=== PATIENT | male | born 1935 | race Caucasian/White ===

== ENCOUNTER 2018-08-29 09:40 | Inpatient (IN) | payer MEDICARE, BC ==
[~2018-08-29] VITALS: Ht 175.3 cm; Wt 70.8 kg
[2018-08-29 09:48] VITALS: BP 143/57
[2018-08-29 10:04] LABS: ABSOLUTE EOSINOPHILS 0.1 thou/uL (0.0-0.7); ABSOLUTE MONOCYTES 0.5 thou/uL (0.0-1.2); BASOPHILS 0.5 %; HEMATOCRIT 32.8 % (42.0-52.0); LYMPHOCYTES 22.7 %; MCHC 33.7 g/dL (28.0-37.0); MONOCYTES 6.2 %; MPV 8.7 fl. (7.2-11.1); NUCLEATED RBCS 0 /100WBC; PLATELET COUNT* 201 thou/uL (150-400); POLYS 69.6 %; RBC 3.56 mil/uL (4.50-6.00); RDW-CV 14.3 % (10.5-14.5); WBC 8.6 thou/uL (4.0-11.0)
[2018-08-29 10:14] LABS: ANION GAP 9 mmol/L (7-16); BUN 33 mg/dL (7-18); CALCIUM 9.2 mg/dL (8.5-10.1); CHLORIDE 103 mmol/L (98-107); CO2 27 mmol/L (21-32); CREATININE 2.1 mg/dL (0.6-1.3); GLUCOSE 127 mg/dL (70-99); POTASSIUM 4.5 mmol/L (3.5-5.1); SODIUM 139 mmol/L (136-145)
[2018-08-29 10:17] LABS: APTT 28.7 Seconds (25.0-31.3); INR 1.1; PROTIME 10.9 Seconds (9.20-11.50)
[2018-08-29 10:33] LABS: ALBUMIN 3.8 g/dL (3.4-5.0); ALKALINE PHOSPHATASE 71 U/L (46-116); CK-MB MASS 1.6 ng/mL (<0.5-3.6); LIPASE 60 U/L (73-393); MAGNESIUM 1.6 mg/dL (1.8-2.4); NT-PRO BRAIN NAT PEPTIDE 1613 pg/mL (<300); SGOT 10 U/L (15-37); SGPT 16 U/L (30-65); TOTAL BILIRUBIN 0.3 mg/dL (<0.1-1.0); TOTAL PROTEIN 7.2 g/dL (6.4-8.2); TROPONIN-I LEVEL <0.06 ng/mL (<0.06)
[2018-08-29] MEDS ORDERED: PLAVIX 75 MG TA75 M1 PO (12:27)
[2018-08-29] MEDS ORDERED: FLOMAX0.4 MG PO (12:27)
[2018-08-29] MEDS ORDERED: SINGULAIR 10 MG10 M1 PO (12:28)
[2018-08-29] MEDS ORDERED: LIPITOR 20 MG T20 M1 PO (12:29)
[2018-08-29] MEDS ORDERED: OMEPRAZOLE40 MG PO (12:29)
[2018-08-29] MEDS ORDERED: CHERATUSSIN AC118 ML PO (12:30)
[2018-08-29] MEDS ORDERED: PROTONIX40 M1 PO (12:30)
[2018-08-29] MEDS ORDERED: IMDUR 30 MG TAB30 M1 PO (12:31)
[2018-08-29] MEDS ORDERED: PRINIVIL20 MG PO (12:31)
[2018-08-29] MEDS ORDERED: METFORMIN HCL500 MG PO (12:32)
[2018-08-29] MEDS ORDERED: COMBIVENT RESPIM4 GM INH (12:32)
[2018-08-29] MEDS ORDERED: ZANTAC 150MG T150 MG PO (12:33)
[2018-08-29] MEDS ORDERED: FLOVENT HFA 4444 MCG INH (12:34)
[2018-08-29] MEDS ORDERED: DRYSOL35 ML TOP (12:40)
[2018-08-29] MEDS ORDERED: ALLEGRA ALLERG180 MG PO (12:41)
[2018-08-29] MEDS ORDERED: PRILOSEC 20 MG20 MG PO (12:41)
[2018-08-29] MEDS ORDERED: CENTRUM SILVER1 EAC4 PO (12:41)
[2018-08-29] MEDS ORDERED: PROAIR HFA8.5 GM INH (12:41)
[2018-08-29 13:19] VITALS: BP 117/57
[2018-08-29 13:30] VITALS: BP 124/55
[2018-08-29 16:00] VITALS: BP 122/61
--- NOTE | 2018-08-29 16:20 | 2DMMODE ---
[place] [address] 2 D/M-MODE ECHOCARDIOGRAM Name: KENTRELL JIMENEZ Room: [address] ADM IN [facility]#: [id number] Admission: 08/29/18 Attend Phys: Belinda Bautista Discharge: Date of : 37 Date of Service: 08/29/18 1619 Report #: [id number] THIS REPORT FOR: //name// APPROVED REPORT Study performed: 08/29/2018 15:06:04 EXAM: Comprehensive 2D, Doppler, and color-flow Echocardiogram Patient Location: In-Patient Room #: [facility] Status: routine BSA: 1.87 HR: 79 bpm BP: 124/55 mmHg Rhythm: NSR Other Information Study Quality: Good Indications Atrial Fibrillation 2D Dimensions IVSd: 8.82 (7-11mm) LVOT Diam: 22.72 (18-24mm) LVDd: 58.77 mm PWd: 9.91 (7-11mm) Ascending Ao: 33.84 (22-36mm) LVDs: 44.10 (25-40mm) Aortic Root: 38.34 mm Volumes Left Atrial Volume (Systole) LA ESV Index: 46.10 mL/m2 Aortic Valve AoV Peak Dariel.: 2.07 m/s AO Peak Gr.: 17.22 mmHg LVOT Max P.61 mmHg AO Mean Gr.: 10.78 mmHg LVOT Mean P.80 mmHg LVOT Max V: 0.95 m/s AO V2 VTI: 48.72 cm LVOT Mean V: 0.62 m/s RODRICK (VTI): 1.75 cm2 LVOT V1 VTI: 21.03 cm Mitral Valve E/A Ratio: 0.78 MV Decel. Time: 178.19 ms MV E Max Dariel.: 0.85 m/[place] [address] 2 D/M-MODE ECHOCARDIOGRAM Name: KENTRELL JIMENEZ Room: [address] ADM IN .R.#: [id number] Admission: 08/29/18 Attend Phys: Belinda Bautista Discharge: Date of : 37 Date of Service: 08/29/18 1619 Report #: [id number] MV PHT: 51.67 ms MVA (PHT): 4.26 cm2 TDI E/Lateral E': 9.44 E/Medial E': 8.50 Medial E' Dariel.: 0.10 m/s Lateral E' Dariel.: 0.09 m/s Pulmonary Valve PV Peak Dariel.: 0.86 m/s PV Peak Gr.: 2.95 mmHg Left Ventricle The left ventricle is normal size. There is hypokinesis of the basal portion the inferior wall. There is normal left ventricular wall thickness. Left ventricular systolic function is preserved. LVEF is 50-55%. Grade I - abnormal relaxation pattern. Right Ventricle The right ventricle is normal size. The right ventricular systolic function is normal. Atria Left atrium is moderately dilated. The right atrium size is normal. Aortic Valve Moderate aortic valve sclerosis. No aortic regurgitation is present. Mild aortic stenosis. Mitral Valve The mitral valve is normal in structure. There is no mitral valve regurgitation noted. No evidence of mitral valve stenosis. Tricuspid Valve The tricuspid valve is normal in structure. Unable to assess PA pressure. Trace tricuspid regurgitation. Pulmonic Valve The pulmonary valve is normal in structure. There is no pulmonic valvular regurgitation. Great Vessels The aortic root is normal in size. IVC is normal in size and collapses >50% with [place] [address] 2 D/M-MODE ECHOCARDIOGRAM Name: KENTRELL JIMENEZ Room: [address] IN [facility]#: [id number] Admission: 08/29/18 Attend Phys: Belinda Bautista Discharge: Date of : 37 Date of Service: 08/29/18 1619 Report #: [id number] There is no pericardial effusion. <Conclusion> The left ventricle is normal size. There is normal left ventricular wall thickness. Left ventricular systolic function is preserved. LVEF is 50-55%. Grade I - abnormal relaxation pattern. There is hypokinesis of the basal portion the inferior wall. Left atrium is moderately dilated. Moderate aortic valve sclerosis. Mild aortic stenosis. Trace tricuspid regurgitation. IVC is normal in size and collapses >50% with inspiration. <ELECTRONICALLY SIGNED> By: Bobby Blunt MD, FACC 08/29/18 1619 18 18 Bobby Blunt MD, FACC /INF
--- NOTE | 2018-08-29 16:25 | EKG ---
[place] [address] ELECTROCARDIOGRAM REPORT Name: KENTRELL JIMENEZ Room: [address] ADM IN M.R.#: [id number] Admission: 08/29/18 Attend Phys: Forrest Toussaint Discharge: Date of : 37 Report #: [id number] THIS REPORT FOR: //name// [facility] ED Test Date: 2018-08-29 Test Time: 09:47:47 Pat Name: KENTRELL JIMENEZ Department: Room: [facility] Gender: M Injury Prevention Coordinator: Nay LANDRY : 1935 Requested By: Mohit Jean Order Number: [id number] MD: Bobby Blunt Measurements Intervals [place] Rate: 91 P: 63 NE: 161 QRS: 9 QRSD: 91 T: 46 QT: 316 QTc: 389 Interpretive Statements Sinus rhythm Ventricular premature complex Left atrial enlargement Baseline wander in lead(s) II,III,aVF No previous ECG available for comparison Electronically Signed On 08-29-2018 16:24:51 FISH[employer] TRAWL NET by Bobby Blunt [email or web address] <ELECTRONICALLY SIGNED> By: Bobby Blunt MD, FACC 08/29/18 1624 0947 0947 Bobby Blunt MD, [facility] /EPI
--- NOTE | 2018-08-29 16:51 | EKG ---
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 08/29/18 1651 1551 155 Bobby Blunt MD, FACC /EPI
[2018-08-29 20:00] VITALS: BP 100/51
[2018-08-30] VITALS: BP 113/53
[2018-08-30 04:00] VITALS: BP 113/41
[2018-08-30 04:27] LABS: CHOLESTEROL 88 mg/dL (<200); HDL CHOLESTEROL 43 mg/dL (>40); LDL CHOLESTEROL 35 mg/dL (<100); SERUM ASSESSMENT Clear; TRIGLYCERIDE 54 mg/dL (<150); VLDL 11 mg/dL (<40)
[2018-08-30 08:00] VITALS: BP 115/38
[2018-08-30 12:00] VITALS: BP 93/49
[2018-08-30 16:00] VITALS: BP 126/64
--- NOTE | 2018-08-30 16:16 | EKG ---
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: : 1935 Requested By: Mohit Jean Order Number: [id number] Teofilo MD: Perry Peoples Measurements Intervals [place] Rate: 70 P: 72 [place]: 175 QRS: 21 QRSD: 83 T: 48 QT: 357 QTc: 386 Interpretive Statements Sinus rhythm Probable left atrial enlargement Low voltage, extremity leads Possible anteroseptal infarct, old Compared to ECG 08/29/2018 15:51:03 Myocardial infarct finding now present Electronically Signed On 08-30-2018 16:16:40 MIRROR PAINTER by Perry Peoples [email or web address] <ELECTRONICALLY SIGNED> By: Perry Peoples MD, [facility] 08/30/18 1616 01 01 Perry Peoples MD, [facility] /EPI
--- NOTE | 2018-08-30 16:20 | EKG ---
[place] [address] ELECTROCARDIOGRAM REPORT Name: KENTRELL JIMENEZ Room: [address] ADM IN M.R.#: [id number] Admission: 08/29/18 Attend Phys: Forrest Toussaint Discharge: Date of : 37 Report #: [id number] THIS REPORT FOR: //name// [facility] Test Date: 2018-08-30 Test Time: 08:30:23 Pat Name: KENTRELL JIMENEZ Department: Room: [address] Gender: M Card Reader: : 1935 Requested By: Bobby Blunt Order Number: [id number] Teofilo MD: Perry Peoples Measurements Intervals [place] Rate: 95 P: 75 [place]: 170 QRS: 23 QRSD: 100 T: 58 QT: 375 QTc: 472 Interpretive Statements Sinus rhythm Supraventricular bigeminy Low voltage, extremity leads Minimal ST elevation right precordium Compared to ECG 08/29/2018 15:51:03 Atrial premature complex(es) now present ST (T wave) deviation now present Electronically Signed On 08-30-2018 16:20:37 SENIOR INDUSTRIAL ENGINEER by Perry Peoples [email or web address] <ELECTRONICALLY SIGNED> By: Perry Peoples MD, FAC 08/30/18 1620 0830 Perry Peoples MD, [facility] /EPI
--- NOTE | 2018-08-30 16:49 | CARDNUC ---
[place] [address] CARDIAC NUCLEAR IMAGING REPORT Name: KENTRELL JIMENEZ Room: [address] IN [facility]#: [id number] Admission: 08/29/18 Attend Phys: Belinda Bautista Discharge: Date of : 37 Date of Service: 08/30/18 1649 Report #: [id number] THIS REPORT FOR: //name// APPROVED REPORT Study performed: 08/29/2018 14:43:00 Indication: Chest pain, Abnormal EKG, rapid heart rate Patient Location: In-Patient Room #: 202 Stress Tech: Kayy Mayorga Stress Nurse: Anabelle Lyn RN Ht: 5 ft 9 in Wt: 183 lbs BSA: 1.99 m2 BMI: 27.02 Medical History Medical History: mi, hyperlipidemia,hypertension, diabetes, a afib Medications: diltiazem, tambocor, xarelto Allergies: nkda Cardiac Risk Factors: Age, Hyperlipidemia, HTN, DM, renal disease Exercise History: Indeterminate Resting Data Rest SPECT myocardial perfusion imaging was performed in supine position 30 minutes following the intravenous injection of 11.3 mCi of Tc-99m Sestamibi. Time of rest injection: 07:55 The images were gated to evaluate regional wall motion and calculate left ventricular ejection fraction. Administration Route: IV Administration Site: Left AC Pharmacologic Stress Pharmacologic stress test was performed by injecting Regadenoson 0.4 mg IV push over 10-15 seconds immediately followed by the intravenous injection of 34.7 mCi of Tc-99m Sestamibi. Time of stress injection: 09:40 Administration Route: IV Administration Site: Left AC Heart Rate at time of stress injection: 96 bpm. Gated Stress SPECT was performed 40 minutes [place] [address] CARDIAC NUCLEAR IMAGING REPORT Name: KENTRELL JIMENEZ Room: [address] IN ..#: [id number] Admission: 08/29/18 Attend Phys: Belinda Bautista Discharge: Date of : 37 Date of Service: 08/30/18 1649 Report #: [id number] The images were gated to evaluate regional wall motion and calculate left ventricular ejection fraction. Prone imaging was performed. Stress Test Details Stress Test: Pharmacologic stress testing performed using 0.4 mg of regadenoson per 5 mL given IV over 10 seconds. HR Max Heart Rate (APMHR): 139 bpm Resting HR: 75 bpm Target HR (85% APMHR): 118 bpm Max HR Achieved: 96 bpm % of APMHR: 69 Recovery HR: 90 bpm BP Resting BP: 136/68 mmHg Max BP: 127/55 mmHg Recovery BP: 117/49 mmHg ECG Resting ECG: Sinus Rhythm Stress ECG: Sinus Rhythm ST Change: None Arrhythmia: None Recovery ECG: Sinus Rhythm Recovery ST Change: None Recovery Arrhythmia: None Clinical Reason for Termination: Completed protocol The patient tolerated Lexiscan infusion without significant symptoms. Nurse Comments pt to weak to walk on treadmill Stress ECG Conclusion The baseline 12-lead EKG shows sinus rhythm without significant Mr. T wave abnormality. EKGs obtained during and post Lexiscan infusion show sinus rhythm with no significant ST or T wave changes when compared baseline. Were no stress-induced arrhythmias. Study Quality Study: Good Artifact: Mild Diaphragmatic [place] [address] CARDIAC NUCLEAR IMAGING REPORT Name: KENTRELL JIMENEZ Room: [address] IN [facility].#: [id number] Admission: 08/29/18 Attend Phys: Belinda Bautista Discharge: Date of : 37 Date of Service: 08/30/18 1649 Report #: [id number] At rest, the left ventricular ejection fraction was 39%.. Post stress, the left ventricular ejection was D2%.. TID = 1.02. Perfusion There is a moderate size severe intensity defect involving the basal to mid inferior and inferolateral wall that is fixed. No other significant fixed or reversible defects were identified. Wall Motion The inferior wall appears akinetic. The lateral wall appears hypokinetic. Global LV systolic function is mild to moderately decreased. Nuclear Conclusion ECG Findings: negative for ischemia Clinical Findings: negative for ischemia Nuclear Findings: negative for ischemia Exercise Capacity: not assessed Left Ventricular Function: abnormal Myocardial perfusion images suggest prior infarct of the entire inferolateral wall. Left ventricular systolic function appears to be at least mild moderately decreased. There is no evidence of inducible ischemia. This is a moderate risk study based on the findings consistent with ischemic artery myopathy. <Conclusion> The baseline 12-lead EKG shows sinus rhythm without significant Mr. T wave abnormality. EKGs obtained during and post Lexiscan infusion show sinus rhythm with no significant ST or T wave changes when compared baseline. Were no stress-induced arrhythmias. <ELECTRONICALLY SIGNED> By: Bobby Blunt MD, FACC 08/30/181648 48 48 Bobby Blunt MD, FACC /INF
[2018-08-30 20:00] VITALS: BP 102/81
[2018-08-31] VITALS: BP 120/57
[2018-08-31 04:00] VITALS: BP 107/44
[2018-08-31 08:00] VITALS: BP 107/34
[2018-08-31] MEDS ORDERED: XARELTO20 MG PO (10:07)
[2018-08-31] MEDS ORDERED: IMDUR 30 MG TAB30 M1 PO (10:44)
[2018-08-31 12:00] VITALS: BP 110/88
[2018-08-31 12:21] VITALS: BP 107/34
[2018-08-31] MEDS ORDERED: PACERONE 200 M200 M1 PO (12:36)
[2018-08-31 13:02] VITALS: BP 107/34
--- NOTE | 2018-08-31 16:37 | CON ---
[address] [address] CONSULTATION Name: TONYKENTRELL R Room: [address] IN M.R.#: [id number] Admission: 08/29/18 Attend Phys: Forrest Toussaint Discharge: 08/31/18 Date of : 37 Report #: [id number] THIS REPORT FOR: //name// CC: Belinda Moore MD DATE OF SERVICE: 08/29/2018 INDICATION: Atrial flutter. HISTORY OF PRESENT ILLNESS: The patient is an 82-year-old gentleman who reports myocardial infarction in 1999 at which time he did not seek medical attention. He does not recall ever having an angiogram or other intervention. He has had no events since that time until the past couple of days when he has experienced palpitations associated with dyspnea. He was noted to be in atrial flutter with 2:1 conduction in his primary care physician's office. He was referred to [place] for further treatment. In the hospital here, he is back in sinus rhythm with frequent premature atrial contractions. He is not having any chest pain. He is without other cardiac complaint at this time. PAST MEDICAL HISTORY: 1. Self-reported heart attack in 1999. 2. Type 2 diabetes mellitus. 3. Hypertension. 4. Hyperlipidemia. 5. GERD. 6. Asthma. 7. COPD. PAST SURGICAL HISTORY: 1. Bone spurs. 2. Back surgery. 3. Knee surgery. FAMILY HISTORY: The patient's brother has had a heart attack in his 60s. SOCIAL HISTORY: The patient is . He quit smoking many years ago. He continues to chew tobacco. He drinks alcohol occasionally. ALLERGIES: None known. HOME MEDICATIONS: Albuterol 2 puffs q. 6 hours, Drysol topically weekly p.r.n., atorvastatin 20 mg nightly, Plavix 75 mg daily, Violeta 180 mg daily, Flovent high flow inhaler 2 puffs daily, guaifenesin, codeine syrup p.r.n., Combivent inhaler q.i.d., Imdur 30 mg daily, lisinopril 40 mg daily, metformin 500 mg 2 [place] [address] CONSULTATION Name: KENTRELL JIMENEZ Vangie Room: [address] IN [facility].#: [id number] Admission: 08/29/18 Attend Phys: Forrest Toussaint Discharge: 08/31/18 Date of : 37 Report #: [id number] b.i.d., Singulair 10 mg daily, Centrum Silver tablet 1 daily, omeprazole 40 mg daily, ranitidine 300 mg at bedtime, Flomax 0.4 mg daily. REVIEW OF SYSTEMS: A 14-point review of systems is positive for cough productive of sputum, history of asthma and COPD, dyspnea, history of heart murmur, diabetes. 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 He reports glasses without acute visual loss. He wears dentures. Otherwise, 14-point review of systems is unremarkable. PHYSICAL EXAMINATION: VITAL SIGNS: Blood pressure 124/55, pulse 82 and regular. GENERAL: This is a pleasant gentleman in no distress. Mood and affect appropriate. HEENT: O2 nasal cannula in place. Extraocular muscles intact. Mucous membranes moist. NECK: Shows no jugular venous distention. There are no carotid bruits. CHEST: Reveals diminished breath sounds throughout without wheezes or rales. Expiration is prolonged. CARDIOVASCULAR: Reveals regular rhythm with grade 2/6 systolic ejection murmur. I do not appreciate gallop. ABDOMEN: Reveals normal bowel sounds. The abdomen is soft, nontender. EXTREMITIES: Shows no edema. Peripheral pulses 2+ and palpable. SKIN: Warm and dry. LABORATORY DATA: A 12-lead EKG shows nonspecific intraventricular conduction delay. There is sinus rhythm with premature ventricular and premature atrial contractions. Possible left atrial enlargement noted. No acute ST or T-wave abnormalities noted. No pathologic Q-waves noted. Available labs reviewed. Electrolytes within normal limits. BUN 33, creatinine 2.1, serum glucose 127. LFTs within normal limits. Troponin less than 0.06. NT-proBNP 1613. Coags within normal limits. White blood cell count 8.6, hemoglobin 11.0, platelet count 201,000. Chest x-ray shows biapical pleural parenchymal scarring without acute infiltrate or effusion. IMPRESSION AND RECOMMENDATIONS: 1. Paroxysmal atrial flutter. The patient presently is in sinus rhythm. We will start combination of diltiazem and flecainide at this time and follow. The patient's CHADS score is 2. We would recommend anticoagulation with novel anticoagulant. Recommend Xarelto 20 mg daily. We will obtain echocardiogram to evaluate underlying cardiac structure and function. 2. Dyspnea, etiology is likely due to arrhythmia. Patient reports possible underlying coronary artery disease. We will obtain stress testing at this time. 3. Cardiac murmur likely due to aortic valvular sclerosis or stenosis. [address] [address] CONSULTATION Name: KENTRELL JIMENEZ Vangie Room: [address] IN M.R.#: [id number] Admission: 08/29/18 Attend Phys: Forrest Toussaint Discharge: 08/31/18 Date of : 37 Report #: [id number] Echocardiogram ordered and pending. 4. Hypertension adequately controlled presently. 5. Hyperlipidemia. Continue atorvastatin. Repeat fasting lipid profile at this time. 6. Diabetes per primary physician. <ELECTRONICALLY SIGNED> By: Bobby Blunt MD, FACC 08/31/18 1637 1451 02[facility] Blunt MD, FACC /nt
== END 2018-08-31 12:50 | disposition home or self-care (01) | DRG 308 ==
LOC: M.ERS 09:40 → M.TBA-ER 11:53 → M.2W 11:53
PROVIDERS: Family Medicine; Internal Medicine Cardiovascular Disease; ADMIT Internal Medicine
DX: I48.0 Paroxysmal atrial fibrillation (principal); I50.33 Acute on chronic diastolic (congestive) heart failure; I13.0 Hypertensive heart and chronic kidney disease with heart failure and stage 1 through stage 4 chronic kidney disease, or unspecified chronic kidney disease; D68.59 Other primary thrombophilia; I48.92 Unspecified atrial flutter; N18.3 Chronic kidney disease, stage 3 (moderate); E11.22 Type 2 diabetes mellitus with diabetic chronic kidney disease; I25.10 Atherosclerotic heart disease of native coronary artery without angina pectoris; E78.5 Hyperlipidemia, unspecified; K21.9 Gastro-esophageal reflux disease without esophagitis; J44.9 Chronic obstructive pulmonary disease, unspecified; R01.1 Cardiac murmur, unspecified; I25.5 Ischemic cardiomyopathy; I95.2 Hypotension due to drugs; T46.1X5A Adverse effect of calcium-channel blockers, initial encounter; T46.4X5A Adverse effect of angiotensin-converting-enzyme inhibitors, initial encounter; Y92.89 Other specified places as the place of occurrence of the external cause; Z87.891 Personal history of nicotine dependence; I25.2 Old myocardial infarction; Z79.02 Long term (current) use of antithrombotics/antiplatelets; Z79.51 Long term (current) use of inhaled steroids; Z79.84 Long term (current) use of oral hypoglycemic drugs; Z79.899 Other long term (current) drug therapy; Z82.49 Family history of ischemic heart disease and other diseases of the circulatory system

== ENCOUNTER 2018-09-20 19:58 | Inpatient (IN) | payer MEDICARE, BC ==
[~2018-09-20] VITALS: Ht 177.8 cm; Wt 70.3 kg
[~2018-09-20 19:58] MED LIST: ALLEGRA ALLERG180 MG PO; CENTRUM SILVER1 EAC4 PO; CHERATUSSIN AC118 ML PO; COMBIVENT RESPIM4 GM INH; DRYSOL35 ML TOP; FLOMAX0.4 MG PO; FLOVENT HFA 4444 MCG INH; IMDUR 30 MG TAB30 M1 PO; LIPITOR 20 MG T20 M1 PO; METFORMIN HCL500 MG PO; OMEPRAZOLE40 MG PO; PACERONE 200 M200 M1 PO; PLAVIX 75 MG TA75 M1 PO; PRILOSEC 20 MG20 MG PO; PRINIVIL20 MG PO; PROAIR HFA8.5 GM INH; PROTONIX40 M1 PO; SINGULAIR 10 MG10 M1 PO; XARELTO20 MG PO; ZANTAC 150MG T150 MG PO
[2018-09-20 20:05] VITALS: BP 164/73
[2018-09-20] MEDS ORDERED: PRILOSEC 10MG C10 MG PO ×2 (20:11→20:18)
[2018-09-20] MEDS ORDERED: LISINOPRIL40 MG PO (20:12)
[2018-09-20] MEDS ORDERED: FISH OIL 1,001000 M2 PO (20:17)
[2018-09-20] MEDS ORDERED: MUCINEX600 MG PO (20:21)
[2018-09-20] MEDS ORDERED: CENTRUM SILVER1 EAC4 PO (20:22)
[2018-09-20] MEDS ORDERED: ECOTRIN325 MG PO (20:23)
[2018-09-20] MEDS ORDERED: VITAMIN D3400 UNIT PO (20:25)
[2018-09-20] MEDS ORDERED: COMBIVENT INH (20:26)
[2018-09-20] MEDS ORDERED: ALEVE220 MG PO (20:27)
[2018-09-20 20:57] LABS: ABSOLUTE BASOPHILS 0.1 thou/uL (0.0-0.2); ABSOLUTE EOSINOPHILS 0.2 thou/uL (0.0-0.7); ABSOLUTE LYMPHOCYTES 5.8 thou/uL (0.8-5.3); ABSOLUTE MONOCYTES 0.9 thou/uL (0.0-1.2); ABSOLUTE NEUTROPHILS 6.2 thou/uL (1.6-8.1); BASOPHILS 0.8 %; EOSINOPHILS 1.7 %; HEMATOCRIT 34.5 % (42.0-52.0); HEMOGLOBIN 11.4 gm/dL (14.0-18.0); LYMPHOCYTES 43.5 %; MCH 31.1 pg (26.0-34.0); MCHC 33.2 g/dL (28.0-37.0); MCV 93.8 fL (80.0-100.0); MONOCYTES 6.9 %; NUCLEATED RBCS 0 /100WBC; PLATELET COUNT* 253 thou/uL (150-400); POLYS 47.1 %; RBC 3.68 mil/uL (4.50-6.00); RDW-CV 14.6 % (10.5-14.5); WBC 13.2 thou/uL (4.0-11.0)
[2018-09-20 21:03] LABS: ANION GAP 12 mmol/L (7-16); BUN 24 mg/dL (7-18); CALCIUM 8.9 mg/dL (8.5-10.1); CHLORIDE 104 mmol/L (98-107); CO2 24 mmol/L (21-32); CREATININE 1.9 mg/dL (0.6-1.3); GLUCOSE 169 mg/dL (70-99); POTASSIUM 4.5 mmol/L (3.5-5.1); SODIUM 140 mmol/L (136-145)
[2018-09-20 21:04] LABS: APTT 34.6 Seconds (25.0-31.3); INR 1.9; PROTIME 19.7 Seconds (9.20-11.50)
[2018-09-20 21:12] LABS: ALBUMIN 3.7 g/dL (3.4-5.0); ALKALINE PHOSPHATASE 72 U/L (46-116); LIPASE 63 U/L (73-393); MAGNESIUM 1.7 mg/dL (1.8-2.4); NT-PRO BRAIN NAT PEPTIDE 481 pg/mL (<300); SGOT 13 U/L (15-37); SGPT 20 U/L (30-65); TOTAL BILIRUBIN 0.3 mg/dL (<0.1-1.0); TOTAL PROTEIN 7.4 g/dL (6.4-8.2); TROPONIN-I LEVEL <0.06 ng/mL (<0.06)
[2018-09-20 21:30] VITALS: BP 95/56
[2018-09-20 21:54] VITALS: BP 106/55
[2018-09-20 22:00] VITALS: BP 137/77
[2018-09-21] VITALS (20 sets, daily range): BP systolic 75–116; BP diastolic 39–57
[2018-09-21 04:51] LABS: HEMATOCRIT 29.2 % (42.0-52.0); MCH 31.8 pg (26.0-34.0); MCHC 34.2 g/dL (28.0-37.0); MPV 9.1 fl. (7.2-11.1); RBC 3.15 mil/uL (4.50-6.00); RDW-CV 14.6 % (10.5-14.5); WBC 9.2 thou/uL (4.0-11.0)
[2018-09-21 04:57] LABS: CALCIUM 8.1 mg/dL (8.5-10.1); POTASSIUM 5.3 mmol/L (3.5-5.1)
[2018-09-21 05:39] LABS: BE -4.5 mmol/L (-2 to +3); HCO3 21.6 mmol/L (22.0-26.0); PCO2 43.7 mmHg (35.0-45.0); pH 7.311 (7.340-7.450)
[2018-09-21 05:42] LABS: PO2 208.9 mmHg (75.0-100.0)
[2018-09-21 08:00] LABS: HEMATOCRIT 28.6 % (42.0-52.0); HEMOGLOBIN 9.5 gm/dL (14.0-18.0)
[2018-09-21 08:10] LABS: CALCIUM 8.3 mg/dL (8.5-10.1); CREATININE 2.1 mg/dL (0.6-1.3); MAGNESIUM 1.6 mg/dL (1.8-2.4); POTASSIUM 5.2 mmol/L (3.5-5.1)
--- NOTE | 2018-09-21 11:52 | CON ---
[address] [address] CONSULTATION Name: KENTRELL JIMENEZ Room: [address] ADM IN M.R.#: [id number] Admission: 09/20/18 Attend Phys: Nay Ching Discharge: Date of : 37 Report #: [id number] THIS REPORT FOR: //name// CC: KUSUM Mijares DATE OF SERVICE: 09/21/2018 ATTENDING PHYSICIAN: Kusum Hill MD. PRIMARY CARE PHYSICIAN AN OUTPATIENT: Dr. Antelmo Moore. The patient is located in room bed 3. INDICATION FOR CONSULTATION: Acute respiratory failure, nonmassive hemoptysis, right lung mass, right hilar mass. CLINICAL SUMMARY: The patient is an 82-year-old male, prior smoker, who presented to the Emergency Room late yesterday afternoon early evening with 30 minutes of coughing up blood. It was bright red blood. He was hypoxic when he was seen in the Emergency Room. To get a hold of it, they intubated him. A CT of the chest showed no pulmonary emboli. He had a 6-7 cm right hilar mass with extrinsic compression of the right mainstem bronchus. Right upper lobe seemed relatively patent. Right lower lobe and right middle lobe were narrowed. The mass may have involved the mediastinum and gotten close to vessels, not sure there is invasion of vessels. The patient was on aspirin and Plavix for coronary artery disease and possible prior stents, was on Xarelto 20 mg daily because of atrial fibrillation. He has had no bleeding episodes before. Denies any trauma. Previously was mildly short of breath at home, but had an occasional dry cough. PAST MEDICAL HISTORY: Has a history of atrial fibrillation, coronary artery disease, probable pulmonary fibrosis. No definite COPD. ALLERGIES: He has no known medical allergies. OUTPATIENT MEDICATIONS: Include lisinopril 40 mg daily for hypertension. Combivent inhaler 1 puff 4 times a day, Imdur 30 mg daily, atorvastatin 20 mg daily, montelukast was 10 mg daily. Tamsulosin 0.4 mg daily. Clopidogrel bisulfate or Plavix 75 mg daily, aspirin was 81 mg daily, Xarelto was 20 mg daily that is on hold at this time. Currently, he is on IV Solu-Medrol 62.5 mg IV q.8 hours and also on DuoNeb nebulizers 4 times a day as well as Zosyn for an antibiotic. The patient also has chronic kidney disease stage 3, hypertension, coronary artery disease with an RI in the year [address] [address] CONSULTATION Name: KENTRELL JIMENEZ Room: [address] IN M.R.#: [id number] Admission: 09/20/18 Attend Phys: Nay Ching Discharge: Date of : 37 Report #: [id number] FAMILY HISTORY: Negative for premature cardiopulmonary disease. SOCIAL HISTORY: The patient states he is a remote smoker. He uses alcohol on limited occasions. He lives with his , and he is . I am not sure what his occupation was at this time. REVIEW OF SYSTEMS: A 14-point review of systems was reviewed and negative except for pertinent positives noted in HPI. PHYSICAL EXAMINATION: GENERAL: An 82-year-old male who is intubated and sedated at this time, in no acute distress. A few flecks of old blood in the ET tube. He had about 100 mL noted in the canister. CURRENT VITAL SIGNS: Blood pressure is 100/50, on no pressors. Heart rate 64, respirations are 14 over backup rate of 14. He is afebrile, temperature is 36.6 degrees. He is 5 feet 10 inches tall, weight 70 kilograms or 154 pounds. BMI is 22. HEENT: Pupils are midpoint. Orally intubated. NECK: Supple without nodes. CHEST: Shows rhonchi and expiratory wheeze in the right lung, in the right upper lobe, right lower lobe was somewhat diminished. A few basilar crackles noted on the left. No wheeze on the left. CARDIOVASCULAR: Regular rate and rhythm without murmur, gallop or rub. Heart rate is in the 60s. No S3 is noted, appears to be regular. ABDOMEN: Soft, without masses or megaly. EXTREMITIES: No calf tenderness. No cyanosis, clubbing or edema. He will withdraw all fours to tactile stimuli. LABORATORY DATA: From this morning 09/21/2018. Hemoglobin is 10, hematocrit is 29, platelet count 167,000, white count is 9200, with mild increase in lymphocytes at 43%, absolute lymphocytes are increased at 5.8%, eosinophils are normal. Sodium is 140, potassium is 5.2, chloride 108, BUN is 28, creatinine is 2.1, glucose is 200, calcium is 8.3, magnesium is 1.6. ABGs yesterday on 50%, 550, assist control 14, PEEP of 5, shows a pO2 of 208, pH of 7.31, pCO2 is 43, bicarbonate is 21, sats 98%. Carboxyhemoglobin was only 0.2. Chest x-ray and CT of the chest shows 6-8 cm right hilar mass with extrinsic compression, right mainstem bronchus, possibly some invasion of the mediastinum and bibasilar infiltrates that appear to be pulmonary fibrosis on the other films. No CHF is noted. No other masses noted on the left. IMPRESSION: 1. Acute respiratory failure secondary to hemoptysis. 2. Underlying moderate pulmonary fibrosis. 3. 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 [address] CONSULTATION Name: KENTRELL JIMENEZ Vangie Room: 003-P [facility] IN [facility].#: [id number] Admission: 09/20/18 Attend Phys: Nay Ching Discharge: Date of : 37 Report #: [id number] 4. Hemoptysis, probably related to right lung mass and combination of antiplatelet drugs, Plavix as well as Xarelto anticoagulants, both on hold at this time. 5. Chronic kidney disease with elevated creatinine. PLAN: Keep on steroids and antibiotics, keep him off his Plavix and any anticoagulant such as Xarelto. To see if we get him set up for bronchoscopy tomorrow to evaluate for endobronchial lesion to obtain specimens. We will need to do some biopsies of the right hilar mass, would rather do that while he is intubated with his history of hemoptysis and being on prior blood thinners. We would like to get this done before the holiday season sets in and then, maybe, Tuesday or Tuesday we can extubate him and then proceed from there. I would keep off anticoagulants at this time and will have to reevaluate that once we see what the tissue looks like and see how vascular this lesion is. I will discuss this with the patient's who is at the bedside at this time. This has been a 36 minute critical care consult. <ELECTRONICALLY SIGNED> By: Kota Delacruz MD 09/21/18 1152 0940 1104Antapril Delacruz MD /nt
[2018-09-22] VITALS (8 sets, daily range): BP systolic 101–116; BP diastolic 41–49
[2018-09-22 04:17] LABS: HEMATOCRIT 26.5 % (42.0-52.0); HEMOGLOBIN 8.9 gm/dL (14.0-18.0); MCH 31.4 pg (26.0-34.0); MCHC 33.5 g/dL (28.0-37.0); MCV 93.5 fL (80.0-100.0); MPV 9.1 fl. (7.2-11.1); RBC 2.84 mil/uL (4.50-6.00); RDW-CV 14.6 % (10.5-14.5); WBC 12.2 thou/uL (4.0-11.0)
[2018-09-22 05:20] LABS: CALCIUM 7.8 mg/dL (8.5-10.1); CREATININE 2.1 mg/dL (0.6-1.3); MAGNESIUM 1.6 mg/dL (1.8-2.4); POTASSIUM 4.5 mmol/L (3.5-5.1)
[2018-09-22 05:20] LABS: HCO3 18.6 mmol/L (22.0-26.0); PCO2 37.9 mmHg (35.0-45.0); pH 7.309 (7.340-7.450)
--- NOTE | 2018-09-22 13:03 | PROC ---
[address] [address] PROCEDURE REPORT Name: KENTRELL JIMENEZ Room: [address] IN M.R.#: [id number] Admission: 09/20/18 Attend Phys: Nay Ching Discharge: Date of : 37 Report #: [id number] THIS REPORT FOR: //name// CC: KUSUM Mijares DATE OF SERVICE: 09/22/2018 ATTENDING PHYSICIAN: Kusum Hill MD. PRIMARY CARE PHYSICIAN: Antelmo Moore MD. PREOPERATIVE DIAGNOSES: Hemoptysis, right upper lobe mass, pulmonary fibrosis, POSTOPERATIVE DIAGNOSES: Hemoptysis, right upper lobe mass, pulmonary fibrosis, fresh blood throughout airways. Right upper lobe bleeding, emanating from an enlarged right upper lobe jose cruz with extrinsic compression, no endobronchial lesions noted. PROCEDURE PERFORMED: Fiberoptic bronchoscopy by Dr. Delacruz. COMPLICATIONS: None. SPECIMENS: See orders. The patient is an 82-year-old male, very remote smoker with respiratory failure secondary to pulmonary fibrosis and hemoptysis. The patient was on aspirin and Plavix and also on Xarelto for atrial fibrillation. All these have been held for 36-48 hours, he has been on the ventilator at this time. Oxygenation is good. Chest x-ray and CT of the chest showed a 6-8 cm right hilar mass with extrinsic compression of the right upper lobe, right middle lobe bronchus and then also hemoptysis. He also has upper lobe pulmonary fibrosis and also extends into his lower lobes. He has not been diagnosed yet. Bronchoscopy is indicated to evaluate for endobronchial lesion to obtain specimens, ascertain source of hemoptysis. Indications, benefits, risks of bronchoscopy, possible biopsy were explained to the patient. He understood and agreed. Informed consent was obtained from his who is durable power of semiautomatic taper operator. She understood the benefits and the risks. The patient was sedated on the ventilator. He is on FiO2 of 100%. His O2 sat did not drop below 98%. He was on a midazolam drip at 4 mg an hour. He had a 2 mg of midazolam IV push prior to the procedure, then fentanyl 25 mcg IV push given. Appropriate verbal timeout was [place] [address] PROCEDURE REPORT Name: KENTRELL JIMENEZ Room: [address] IN [facility].#: [id number] Admission: 09/20/18 Attend Phys: Nay Ching Discharge: Date of : 37 Report #: [id number] correct procedure for the correct patient. He had Xylocaine aerosol prior to this. Flexible fiberoptic bronchoscopy carried out via 7.5 oral endotracheal tube. The tip of the ET tube was 4 cm above the jose cruz. There is much blood throughout his airways. There is some blood at the end of the endotracheal tube, which was suctioned, little bit of blood in the left lung. There were no endobronchial lesions or mucosal abnormalities in the left lung other than the blood that has spilled over from the right mainstem bronchus. Most of the fresh blood was emanating from the right upper lobe bronchus. There is no intrabronchial lesions noted. The right upper lobe jose cruz was widened. Right middle lobe segment could be obtained. There was much blood in the right upper lobe, right middle lobe and also in the right lower lobe. This was suctioned with some difficulty. Some of the blood was thickened and clotted. Specimens obtained from the right upper lobe to include a microbrush and a bronchial wash for Gram stain, C and S, AFB with smear and culture, fungal smear with culture. Slides x 3 and second bronchial wash were sent for cytology to evaluate for possible right upper lobe cancer versus other inflammatory causes of hemoptysis. Then endobronchial biopsies x 5 were obtained of the right upper lobe bronchus, which appeared to have some mucosal abnormalities, although there is much blood in the airways. Good specimen return was noted and some of this was blood with clots of blood. This was sent in formalin for histology again to evaluate for lung CA or inflammatory causes of hemoptysis. The patient also has pulmonary fibrosis, and we did the workup for pulmonary fibrosis. All lobes were lavaged until relatively clear. He received several aliquots of epinephrine. He bled a little bit after the endobronchial biopsies, but we brushed him first and he did not have much bleeding from that. Oxygenation stayed stable on FiO2 of 100%, and we will give him a nebulizer treatment after the procedure is done. Bronchoscope was withdrawn without incident. The patient tolerated procedure well without complications. Working diagnosis in the procedure was right hilar mass with hemoptysis, still suspicious for primary bronchogenic CA. Workup for pulmonary fibrosis also undertaken. No complications to the above procedure. <ELECTRONICALLY SIGNED> By: Kota Delacruz MD 09/22/18 1303 0842 [id number] Delacruz MD /nt
[2018-09-23] VITALS (18 sets, daily range): BP systolic 97–149; BP diastolic 35–90
[2018-09-23 03:39] LABS: HEMATOCRIT 27.1 % (42.0-52.0); HEMOGLOBIN 9.1 gm/dL (14.0-18.0); MCH 31.3 pg (26.0-34.0); MCHC 33.5 g/dL (28.0-37.0); MCV 93.4 fL (80.0-100.0); MPV 9.4 fl. (7.2-11.1); RBC 2.9 mil/uL (4.50-6.00); RDW-CV 14.7 % (10.5-14.5); WBC 12.8 thou/uL (4.0-11.0)
[2018-09-23 03:49] LABS: CALCIUM 8.3 mg/dL (8.5-10.1); CREATININE 2.1 mg/dL (0.6-1.3); MAGNESIUM 2.3 mg/dL (1.8-2.4); POTASSIUM 4.5 mmol/L (3.5-5.1)
[2018-09-23 04:57] LABS: PCO2 39.7 mmHg (35.0-45.0)
[2018-09-23 05:29] LABS: pH 7.222 (7.340-7.450)
[2018-09-23 11:11] LABS: HCO3 21.4 mmol/L (22.0-26.0); PCO2 40.6 mmHg (35.0-45.0)
[2018-09-23 11:12] LABS: PO2 162.1 mmHg (75.0-100.0)
[2018-09-24] VITALS (12 sets, daily range): BP systolic 112–151; BP diastolic 44–67
[2018-09-25] VITALS: BP 132/79
[2018-09-25 02:49] LABS: HEMATOCRIT 24.3 % (42.0-52.0); HEMOGLOBIN 8.3 gm/dL (14.0-18.0); MCH 31.4 pg (26.0-34.0); MCHC 34.3 g/dL (28.0-37.0); MCV 91.6 fL (80.0-100.0); MPV 9.6 fl. (7.2-11.1); NUCLEATED RBCS 0 /100WBC; PLATELET COUNT* 153 thou/uL (150-400); RBC 2.66 mil/uL (4.50-6.00); RDW-CV 14.2 % (10.5-14.5); WBC 10.2 thou/uL (4.0-11.0)
[2018-09-25 04:00] VITALS: BP 141/72
[2018-09-25 06:40] LABS: ABSOLUTE LYMPHOCYTES 0.4 thou/uL (0.8-5.3); ABSOLUTE NEUTROPHILS 9.8 thou/uL (1.6-8.1); PLATELET ESTIMATE ADEQUATE
[2018-09-25 09:01] VITALS: BP 148/83
[2018-09-25 12:00] VITALS: BP 133/46
--- NOTE | 2018-09-25 13:42 | EKG ---
[place] [address] ELECTROCARDIOGRAM REPORT Name: KENTRELL JIMENEZ Room: [address] ADM IN M.R.#: [id number] Admission: 09/20/18 Attend Phys: Nay Ching Discharge: Date of : 37 Report #: [id number] THIS REPORT FOR: //name// [facility] Test Date: 2018-09-24 Test Time: 16:32:16 Pat Name: KENTRELL JIMENEZ Department: Room: [address] Gender: M Watch Supervisor: : 1935 Requested By: Valentin Lund Order Number: [id number] Teofilo MD: Bobby Blunt Measurements Intervals [place] Rate: 116 P: WI: QRS: 9 QRSD: 78 T: 174 QT: 366 QTc: 509 Interpretive Statements Incomplete analysis due to missing data in precordial lead(s) Atrial fibrillation Nonspecific repol abnormality, diffuse leads Missing lead(s): V1,V3 Compared to ECG 08/30/2018 08:30:23 Early repolarization now present Prolonged QT interval now present Sinus rhythm no longer present Atrial premature complex(es) no longer present ST (T wave) deviation no longer present Electronically Signed On 09-25-2018 13:41:52 TREE CUTTER by Bobby Blunt [email or web address] <ELECTRONICALLY SIGNED> By: Bobby Blunt MD, FACC 09/25/18 1341 1632 1632 Bobby Blunt MD, FAC /EPI
--- NOTE | 2018-09-25 13:43 | EKG ---
[place] [address] ELECTROCARDIOGRAM REPORT Name: KENTRELL JIMENEZ Room: [address] ADM IN M.R.#: [id number] Admission: 09/20/18 Attend Phys: Nay Ching Discharge: Date of : 37 Report #: [id number] THIS REPORT FOR: //name// [facility] Test Date: 2018-09-24 Test Time: 19:03:37 Pat Name: KENTRELL JIMENEZ Department: Room: [facility] Gender: M Cell Tender Helper: CCD : 1935 Requested By: Valentin Lund Order Number: [id number] Teofilo MD: Naeem Duque Measurements Intervals [place] Rate: 76 P: 116 ME: 174 QRS: 163 QRSD: 114 T: 117 QT: 368 QTc: 414 Interpretive Statements Incomplete analysis due to missing data in precordial lead(s) Sinus rhythm Left atrial enlargement Probable lateral infarct, age indeterminate Baseline wander in lead(s) V6 Missing lead(s): V5 Electronically Signed On 09-25-2018 13:42:58 LEATHER STITCHER by Naeem Duque [email or web address] <ELECTRONICALLY SIGNED> By: Naeem Duque MD, FAC 09/25/18 1342 1903 1903 Naeem Duque MD, FAC /EPI
--- NOTE | 2018-09-25 13:43 | EKG ---
[place] [address] ELECTROCARDIOGRAM REPORT Name: KENTRELL JIMENEZ Room: [address] ADM IN M.R.#: [id number] Admission: 09/20/18 Attend Phys: Nay Ching Discharge: Date of : 37 Report #: [id number] THIS REPORT FOR: //name// [facility] Test Date: 2018-09-24 Test Time: 22:55:50 Pat Name: KENTRELL JIMENEZ Department: Room: [address] Gender: M Sugar Drier: JACKI : 1935 Requested By: Douglas Arellano Order Number: [id number] Teofilo MD: Bobby Blunt Measurements Intervals [place] Rate: 106 P: [place]: QRS: 5 QRSD: 107 T: 88 QT: 364 QTc: 484 Interpretive Statements Atrial fibrillation Borderline prolonged QT interval Compared to ECG 08/30/2018 08:30:23 Sinus rhythm no longer present Atrial premature complex(es) no longer present ST (T wave) deviation no longer present Electronically Signed On 09-25-2018 13:43:04 CORE SUCKER by Bboby Blunt [email or web address] <ELECTRONICALLY SIGNED> By: Bobby Blunt MD, FACC 09/25/18 1343 2255 2255 Bobby Blunt MD, FACC /EPI
--- NOTE | 2018-09-25 15:06 | PATH ---
[address] [address] PATHOLOGY RPT PROCEDURE Name: KENTRELL JIMENEZ Room: [address] IN R.#: [id number] Admission: 09/20/18 Date of : 37 Discharge: Report #: [id number] Path Case #: [id number] Note [facility] Accession Number: [id number] TESTS RESULT FLAG UNITS REF RANGE LAB Clinician Provided Cytology Information No. of containers..01 Other (Miscellaneous) Source: SPUTUM DIAGNOSIS: 02 SPUTUM NEGATIVE FOR MALIGNANT CELLS. FEW PULMONARY MACROPHAGES (DUST CELLS) AND INFLAMMATORY CELLS PRESENT. Signed out by: 02 Paresh Lord MD, Pathologist NPI- [id number] Performed by: 01 Dimitris Celis, Town Manager ([facility]) Gross description: 01 2ML, RED, CLOUDY /LCS FLAG LEGEND: L-Low Normal,H-High Normal,LL-Alert Low,HH-Alert High <-Panic Low,>-Panic High,A-Abnormal,AA-Critical Abnormal Performed at: [address] [place] [address] Андрей Carlton MD, [address] [place] [address] [place] [address] Paresh Lord MD, Specimen Comment: A courtesy copy of this report has been sent to Specimen Comment: [phone]. Specimen Comment: Report sent to Performed at: [address], [place], [place] [id number] MD Андрей Carlton MD Phone: [phone]
[2018-09-25 16:00] VITALS: BP 168/75
[2018-09-25 20:00] VITALS: BP 134/54
[2018-09-26] VITALS: BP 139/64
[2018-09-26 04:00] VITALS: BP 129/58
[2018-09-26 08:00] VITALS: BP 132/68
[2018-09-26 12:20] VITALS: BP 147/89
[2018-09-26 16:00] VITALS: BP 131/62
[2018-09-26 20:00] VITALS: BP 132/59
[2018-09-27] VITALS: BP 112/58
[2018-09-27 04:00] VITALS: BP 108/63
[2018-09-27 07:55] VITALS: BP 131/44
[2018-09-27] MEDS ORDERED: PREDNISONE 10 M10 MG PO (08:34)
[2018-09-27] MEDS ORDERED: AUGMENTIN 875-1 EACH PO (08:34)
[2018-09-27 11:16] VITALS: BP 131/44
--- NOTE | 2018-09-27 11:37 | EKG ---
[place] [address] ELECTROCARDIOGRAM REPORT Name: KENTRELL JIMENEZ Room: [address] ADM IN M.R.#: [id number] Admission: 09/20/18 Attend Phys: Nay Ching Discharge: Date of : 37 Report #: [id number] THIS REPORT FOR: //name// [facility] Test Date: 2018-09-27 Test Time: 08:30:53 Pat Name: KENTRELL JIMENEZ Department: Room: [address] Gender: M Project Leader: : 1935 Requested By: Sav Reid Order Number: [id number] Teofilo MD: Naeem Duque Measurements Intervals [place] Rate: 62 P: 71 SD: 150 QRS: 28 QRSD: 107 T: 56 QT: 388 QTc: 394 Interpretive Statements Sinus rhythm Borderline ST elevation, anterior leads Baseline wander in lead(s) V4 Compared to ECG 09/24/2018 22:55:50 ST (T wave) deviation now present Atrial fibrillation no longer present Electronically Signed On 09-27-2018 11:37:47 CENTREX RADIO OPERATOR by Naeem Duque [email or web address] <ELECTRONICALLY SIGNED> By: Naeem Duque MD, FAC 09/27/18 1137 Naeem Duque MD, [facility] /EPI
[2018-09-27 11:45] VITALS: BP 121/51
[2018-09-27] MEDS ORDERED: PACERONE 200 M200 M1 PO (13:40)
--- NOTE | 2018-09-28 14:07 | PATH ---
[address] [address] PATHOLOGY RPT PROCEDURE Name: KENTRELL JIMENEZ Room: [address] IN [place]#: [id number] Admission: 09/20/18 Date of : 37 Discharge: 09/27/18 Report #: [id number] Path Case #: [id number] Note [facility] Accession Number: [id number] TESTS RESULT FLAG UNITS REF RANGE LAB Clinician Provided Cytology Information No. of containers..01 Slide Source: RUL BRUSHING DIAGNOSIS: RUL BRUSHING NEGATIVE FOR MALIGNANT CELLS. BLOODY SPECIMEN WITH REACTIVE BRONCHIAL EPITHELIAL CELLS PRESENT. Signed out by: 02 Paresh Lord MD, Pathologist NPI- [id number] Performed by: 01 Dimitris Celis, Production Planning Manager ([employer]) FLAG LEGEND: L-Low Normal,H-High Normal,LL-Alert Low,HH-Alert High <-Panic Low,>-Panic High,A-Abnormal,AA-Critical Abnormal Performed at: [address] [place] [address] Андрей Carlton MD, [address] [place] [address] [facility], [place] [address] Paresh Lord MD, Specimen Comment: A courtesy copy of this report has been sent to Specimen Comment: [phone]. Specimen Comment: A duplicate report has been generated due to demographic updates. Performed at: [address], [place], [place] [id number] MD Андрей Carlton MD Phone: [phone]
--- NOTE | 2018-09-28 14:07 | PATH ---
[address] [address] PATHOLOGY RPT PROCEDURE Name: KENTRELL JIMENEZ Room: [address] IN [place]#: [id number] Admission: 09/20/18 Date of : 37 Discharge: 09/27/18 Report #: [id number] Path Case #: [id number] Note [facility] Accession Number: [id number] TESTS RESULT FLAG UNITS REF RANGE LAB Clinician Provided Cytology Information No. of containers..01 Other (Miscellaneous) Source: BRONCH WASH DIAGNOSIS: BRONCH WASH NEGATIVE FOR MALIGNANT CELLS. BLOODY SPECIMEN WITH FEW BRONCHIAL EPITHELIAL CELLS, PULMONARY MACROPHAGES (DUST CELLS) AND INFLAMMATORY CELLS PRESENT. Signed out by: 02 Paresh Lord MD, Pathologist NPI- [id number] Performed by: Dimitris Celis, Paleobotanist ([facility]) Gross description: 01 19ML, RED (BLOODY), CLOUDY /LCS FLAG LEGEND: L-Low Normal,H-High Normal,LL-Alert Low,HH-Alert High <-Panic Low,>-Panic High,A-Abnormal,AA-Critical Abnormal Performed at: [address] [place] [address] Андрей Carlton MD, [address] [place] [address] [address] [place] [address] Paresh Lord MD, Specimen Comment: A courtesy copy of this report has been sent to Specimen Comment: [phone]. Specimen Comment: A duplicate report has been generated due to demographic updates. Performed at: [address] [place] [address], [place], [place] [id number] MD Андрей Carlton MD Phone: [phone]
--- NOTE | 2018-09-29 17:07 | PATH ---
[address] [address] PATHOLOGY RPT PROCEDURE Name: RAMÓN JIMENEZ Room: [address] IN M.R.#: [id number] Admission: 09/20/18 Date of : 37 Discharge: 09/27/18 Report #: [id number] Path Case #: [id number] [facility] Accession Number: [id number] . 01 Material submitted: . RIGHT UPPER LUNG MASS . 01 Clinical history: . RUL mass, hemoptysis, rule out lung cancer . 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 S/09/29/2018 . 02 Comment: The spindle cell neoplasm is present focally in the submucosal tissue of on e of the pieces of bronchial mucosa. The spindle cells are elongated and have tapered ends. These spindle cells are also associated with areas of hypocellularity. Immunoperoxidase stains show the spindle cells to be strongly positive for S-100 and negative for WILFREDO cytokeratin and SMA. . The morphology and immunohistochemical staining pattern of the submucosal tumor in this case is most consistent with a schwannoma. No malignant histologic features are seen in the neoplasm, however, only a very small amount of the neoplasm is present. Given that this patient has a large right mass (measuring up to 5.4 cm), a malignant neoplasm such as a malignant schwannoma cannot be ruled out entirely. . The findings in this case were discussed with Dr. Delacruz on 09/28/2018. . Paresh Lord M.D. has reviewed this case and he agrees with the diagnosis. (SKM:jovanni; 09/29/2018) . 02 Electronically signed: . Federico Liang MD, Pathologist NPI- [id number] . 01 Gross description: . Received in formalin labeled "Ramón Jimenez, arun," and additionally labeled on the requisition as "RUL mass," are multiple fragments of needle cores of roldan soft tissue measuring 2.0 x 0.3 x 0.1 cm in aggregate dimensions. The specimen is filtered and entirely submitted in cassette A1. (TSD; 09/25/2018) [place] [address] PATHOLOGY RPT PROCEDURE Name: RAMÓN JIMENEZ Room: [address] DIS IN M.R.#: [id number] Admission: 09/20/18 Date of : 37 Discharge: 09/27/18 Report #: [id number] Path Case #: [id number] TOB/TOB . 02 Pathologist provided ICD-10: D14.31, R91.8 . 02 CPT . 385058, A97858, X08182 Specimen Comment: A courtesy copy of this report has been sent to Specimen Comment: [phone], , . Specimen Comment: Report sent to , and Performed at: [address], [place], [place] [id number] MD Андрей Carlton MD Phone: [phone] Performed at: 02 [facility] [address], [place], [place] [id number] MD Paresh Lord MD Phone: [phone]
== END 2018-09-27 15:04 | disposition home or self-care (01) | DRG 208 ==
LOC: M.ERS 19:58 → M.ICU 21:17 → M.TBA-ER 21:17 → M.ICU 21:35 → M.2W 09-24 17:58
PROVIDERS: Family Medicine; Internal Medicine; Internal Medicine Critical Care Medicine; Internal Medicine Pulmonary Disease; ADMIT Internal Medicine
PROC: 02HV33Z Insertion of Infusion Device into Superior Vena Cava, Percutaneous Approach (ICD-10-PCS; principal; 2018-09-20)
PROC: 0BH17EZ Insertion of Endotracheal Airway into Trachea, Via Natural or Artificial Opening (ICD-10-PCS; 2018-09-21)
PROC: 5A1945Z Respiratory Ventilation, 24-96 Consecutive Hours (ICD-10-PCS; 2018-09-21)
PROC: 0B948ZX Drainage of Right Upper Lobe Bronchus, Via Natural or Artificial Opening Endoscopic, Diagnostic (ICD-10-PCS; 2018-09-22)
PROC: 0BD48ZX Extraction of Right Upper Lobe Bronchus, Via Natural or Artificial Opening Endoscopic, Diagnostic (ICD-10-PCS; 2018-09-22)
PROC: 0BC58ZZ Extirpation of Matter from Right Middle Lobe Bronchus, Via Natural or Artificial Opening Endoscopic (ICD-10-PCS; 2018-09-22)
PROC: 0B918ZZ Drainage of Trachea, Via Natural or Artificial Opening Endoscopic (ICD-10-PCS; 2018-09-22)
PROC: 0BC68ZZ Extirpation of Matter from Right Lower Lobe Bronchus, Via Natural or Artificial Opening Endoscopic (ICD-10-PCS; 2018-09-22)
DX: J69.0 Pneumonitis due to inhalation of food and vomit (principal); J96.01 Acute respiratory failure with hypoxia; R04.89 Hemorrhage from other sites in respiratory passages; R57.9 Shock, unspecified; C34.11 Malignant neoplasm of upper lobe, right bronchus or lung; R04.2 Hemoptysis; I25.10 Atherosclerotic heart disease of native coronary artery without angina pectoris; N18.3 Chronic kidney disease, stage 3 (moderate); I12.9 Hypertensive chronic kidney disease with stage 1 through stage 4 chronic kidney disease, or unspecified chronic kidney disease; I48.0 Paroxysmal atrial fibrillation; E78.5 Hyperlipidemia, unspecified; J84.10 Pulmonary fibrosis, unspecified; K21.9 Gastro-esophageal reflux disease without esophagitis; E11.22 Type 2 diabetes mellitus with diabetic chronic kidney disease; Z79.82 Long term (current) use of aspirin; Z79.51 Long term (current) use of inhaled steroids; Z79.899 Other long term (current) drug therapy; Z87.891 Personal history of nicotine dependence